=== PATIENT | female | born 1980 | race Caucasian/White ===

== ENCOUNTER 2020-10-08 11:26 | Emergency (ER) | payer OTHER ==
[2020-10-08 11:37] VITALS: BP 142/98; PULSE 94; TEMP 99.5; BMI 28.3
[2020-10-08] MEDS ORDERED: KETOROLAC TROMETHAMINE 30 MG/1 ML VIAL IVPUSH ONE (11:53)
[2020-10-08] MEDS ORDERED: KETOROLAC TROMETHAMINE 30 MG/1 ML VIAL ONE (11:56)
[2020-10-08 12:10] LABS: HCG,QUALITATIVE URINE Negative
[2020-10-08 12:26] LABS: BASO % 2.3 % (0-2.0); EOS % 0.1 % (0-4.5); HEMATOCRIT 41.9 % (32.4-45.2); HEMOGLOBIN 13.9 GM/dl (10.7-15.3); LYMPH % 11.7 % (8-40); MCH 31.3 pg (25.7-33.7); MCHC 33.2 g/dl (32.0-36.0); MEAN PLT VOLUME 8.3 fl (7.5-11.1); MONO % 1.3 % (3.8-10.2); NEUT % 84.6 % (42.8-82.8); PLATELET COUNT 349 K/MM3 (134-434); RBC 4.46 M/mm3 (3.60-5.2); RDW 12.7 % (11.6-15.6); WHITE BLOOD COUNT 10.2 K/mm3 (4.0-10.8)
[2020-10-08 12:33] LABS: ALBUMIN 4.4 g/dl (3.4-5.0); BILIRUBIN,TOTAL 0.8 mg/dl (0.2-1); CREATININE 0.6 mg/dl (0.55-1.3)
[2020-10-08 12:40] LABS: CALCIUM OXALATE CRYSTALS RARE /hpf (NONE SEEN); EPITHELIAL CELLS FEW /hpf
== END 2020-10-08 15:43 | disposition home or self-care (01) ==
LOC: FER 11:26
DX: R10.84 Generalized abdominal pain (principal)
CPT/HCPCS: 36415; 76705-TC; 80053; 81003; 81015; 84703; 85025; 99284-25